=== PATIENT | female | born 1950 | race Caucasian/White ===

== ENCOUNTER 2016-06-01 13:24 | Outpatient (RCR) | payer MEDICARE, MEDICAID, OTHER ==
[2016-03-27 11:16] LABS: MEAN CORPUSCULAR HEMOGLOBIN 32 PG (25-34); MEAN CORPUSCULAR HGB CONC 33 G/DL (32-36); MEAN CORPUSCULAR VOLUME 96 FL (80-99); PLATELET COUNT 263 10^3/uL (130-400); RED BLOOD COUNT 4.29 10^6/uL (4.35-5.85); RED CELL DISTRIBUTION WIDTH 15.7 % (10.0-14.5); WHITE BLOOD COUNT 26.4 10^3/uL (4.3-11.0)
[2016-03-27 11:53] LABS: ALANINE AMINOTRANSFERASE 15 U/L (0-55); ALBUMIN 3.6 G/DL (3.2-4.5); ANION GAP 4 MMOL/L (5-14); ASPARTATE AMINO TRANSFERASE 13 U/L (5-34); BILIRUBIN,TOTAL 0.5 MG/DL (0.1-1.0); BLOOD UREA NITROGEN 11 MG/DL (7-18); BUN/CREATININE RATIO 15; CALCIUM 9.1 MG/DL (8.5-10.1); CARBON DIOXIDE 27 MMOL/L (21-32); CHLORIDE 108 MMOL/L (98-107); CREATININE SERUM 0.75 MG/DL (0.60-1.30); GFR ESTIMATED > 60; GLUCOSE 89 MG/DL (70-105); POTASSIUM 4.4 MMOL/L (3.6-5.0); SODIUM 139 MMOL/L (135-145); TOTAL PROTEIN 5.9 G/DL (6.4-8.2)
[2016-03-28 05:54] LABS: IMMUNOGLOBULIN IGA 66 mg/dL (71-263); IMMUNOGLOBULIN IGG 732 mg/dL (672-1680)
[2016-03-28 15:56] LABS: IMMUNOGLOBULIN IGM 74 mg/dL (47-209)
[2016-04-24 11:06] LABS: MEAN CORPUSCULAR HEMOGLOBIN 33 PG (25-34); MEAN CORPUSCULAR HGB CONC 34 G/DL (32-36); MEAN CORPUSCULAR VOLUME 97 FL (80-99); MEAN PLATELET VOLUME 9.5 FL (7.4-10.4); PLATELET COUNT 270 10^3/uL (130-400); RED BLOOD COUNT 4.56 10^6/uL (4.35-5.85); RED CELL DISTRIBUTION WIDTH 15.9 % (10.0-14.5); WHITE BLOOD COUNT 27.7 10^3/uL (4.3-11.0)
[2016-04-24 11:26] LABS: ALANINE AMINOTRANSFERASE 17 U/L (0-55); ALBUMIN 3.8 G/DL (3.2-4.5); ANION GAP 9 MMOL/L (5-14); ASPARTATE AMINO TRANSFERASE 21 U/L (5-34); BILIRUBIN,TOTAL 0.6 MG/DL (0.1-1.0); BLOOD UREA NITROGEN 10 MG/DL (7-18); BUN/CREATININE RATIO 13; CALCIUM 9.5 MG/DL (8.5-10.1); CARBON DIOXIDE 24 MMOL/L (21-32); CHLORIDE 105 MMOL/L (98-107); CREATININE SERUM 0.75 MG/DL (0.60-1.30); GFR ESTIMATED > 60; GLUCOSE 100 MG/DL (70-105); POTASSIUM 4.2 MMOL/L (3.6-5.0); SODIUM 138 MMOL/L (135-145); TOTAL PROTEIN 6.5 G/DL (6.4-8.2)
[2016-05-29 11:01] LABS: MEAN CORPUSCULAR HEMOGLOBIN 32 PG (25-34); MEAN CORPUSCULAR HGB CONC 33 G/DL (32-36); MEAN CORPUSCULAR VOLUME 97 FL (80-99); MEAN PLATELET VOLUME 9.3 FL (7.4-10.4); PLATELET COUNT 259 10^3/uL (130-400); RED BLOOD COUNT 4.53 10^6/uL (4.35-5.85); RED CELL DISTRIBUTION WIDTH 15.3 % (10.0-14.5); WHITE BLOOD COUNT 28.9 10^3/uL (4.3-11.0)
[2016-05-29 11:35] LABS: ALANINE AMINOTRANSFERASE 14 U/L (0-55); ALBUMIN 3.9 G/DL (3.2-4.5); ANION GAP 8 MMOL/L (5-14); ASPARTATE AMINO TRANSFERASE 19 U/L (5-34); BILIRUBIN,TOTAL 0.5 MG/DL (0.1-1.0); BLOOD UREA NITROGEN 9 MG/DL (7-18); BUN/CREATININE RATIO 12; CALCIUM 9.2 MG/DL (8.5-10.1); CARBON DIOXIDE 23 MMOL/L (21-32); CHLORIDE 107 MMOL/L (98-107); CREATININE SERUM 0.75 MG/DL (0.60-1.30); GFR ESTIMATED > 60; GLUCOSE 116 MG/DL (70-105); POTASSIUM 3.9 MMOL/L (3.6-5.0); SODIUM 138 MMOL/L (135-145); TOTAL PROTEIN 6.4 G/DL (6.4-8.2)
[~2016-06-01 13:24] MED LIST: ACETAMINOPHEN 500 MG TAB (TYLENOL) CANCER CTR PO PRN; ACYC800T7 PO; ALBU8.5H2 IH; ALBU8.5HRX IH; ALCA3DRO OU; AMLO5TAB2 PO; ANTIDEPRESSENT; ASCO-277 PO; ASCO100083 PO; AZIT500T5 PO; BUDE10.2 IH; CAL PO; CALC-758 PO; CALC-80 PO; CARB10DR OU; CEFD300C3 PO; CEPH-507 PO; CEPH500C PO; CLCX200C PO; CPR500T PO; CREONC PO; CYAN10007; CYCL10TA45 PO; CYCL10TA9 PO; DICY20TA10 PO; DIPH25TA82 PO; DOCU-161 PO; DOXY100C2 PO; DULO60CA6 PO; ERYT3.5O8 OD; FLC1T PO; FLUC100T6 PO; FOLI0.4T2; GNT.3OO351 OD; HYDR-3714 PO; IBUP1TAB PO; IPRA3AMP IH; IPRA3AMP INH; IVIG 20 GM (PRIVIGEN) CANCER C 200 ML IV SCH; LORA0.5T PO; LOVA20TA2; Levalbuterol Hcl INH; MAG PO; METH25VI24 SQ; METH25VI57 IJ; METH4TAB PO; METHATREXATE; MTX2.5T; MUPI15CR TP; NAPR1TAB21 PO; NCT21TD TD; OMEP20CA12 PO; OMG1KC; ONDA8TAB13 PO; ONDAN4ODT PO; OXYC-12 PO; OXYM30SP73 NSEACH; PRD20T PO; PRM25T PO; PRM50SU PR; REFRESH LIQUIGEL OU; TRAM50TA2 PO; TRM50T; TRM50T PO; VITD PO; ZICAM PO; ZINC PO; [UNRECOGNIZED DRUG - OTHER] INH; [UNRECOGNIZED DRUG - OTHER] TP; diphenhydrAMINE 25 MG TAB (BENADRYL) CANCER CENTER PO SCH
== END 2016-06-25 | disposition home or self-care (01) ==
LOC: ONC 13:24
PROVIDERS: ATTEND Internal Medicine Hematology & Oncology
DX: C91.10 Chronic lymphocytic leukemia of B-cell type not having achieved remission (principal); J44.9 Chronic obstructive pulmonary disease, unspecified; F17.210 Nicotine dependence, cigarettes, uncomplicated; E66.09 Other obesity due to excess calories; M06.9 Rheumatoid arthritis, unspecified; Z87.01 Personal history of pneumonia (recurrent)
CPT/HCPCS: 36415; 80053; 82232; 82784; 85025; 86430; 96365; 96366; 99213

== ENCOUNTER 2016-07-23 13:28 | Emergency (ER) | payer MEDICARE, MEDICAID ==
[~2016-07-23] VITALS: Ht 154.9 cm; Wt 72.6 kg
[~2016-07-23 13:28] MED LIST changes: -ACETAMINOPHEN 500 MG TAB (TYLENOL) CANCER CTR PO PRN; -IVIG 20 GM (PRIVIGEN) CANCER C 200 ML IV SCH; -diphenhydrAMINE 25 MG TAB (BENADRYL) CANCER CENTER PO SCH
[2016-07-23] MEDS ORDERED: RT-ALBUTEROL/IPRATROPIUM 3 ML (DUONEB) VIAL INH ONE (13:45)
[2016-07-23] MEDS ORDERED: ONDANSETRON 4 MG (ZOFRAN) ORAL DISSOLVE TAB PO ONE (14:15)
[2016-07-23] MEDS ORDERED: OSLT75C PO (14:17)
--- NOTE | 2016-07-23 14:17 | ED Respiratory ---
General Chief Complaint: Cough/Cold/Flu Symptoms Stated Complaint: POSS FLU Nursing Triage Note: c/o cough/congestion with N/V. Onset yesterday Source: patient Exam Limitations: no limitations History of Present Illness Time seen by provider: 14:15 Initial Comments To ER with a cough nausea and vomiting that began yesterday. No fever. States that she vomited once last night and it seemed that it may have blood in it. She has not had any recurrence of this. She does take immunoglobulin from Dr. Brand for CLL Timing/Duration: yesterday Severity: moderate Associated Symptoms: cough Allergies and Home Medications Allergies Coded Allergies: tobramycin (Verified Allergy, Mild, RASH, 05/30/14) Developed eye irritation and itching after using tobramycin eyedrops codeine (Unverified Adverse Reaction, Mild, NAUSEA, 10/12/11) Uncoded Allergies: "buddha belly" (Adverse Reaction, Unknown, states he abdomen gets big and distended from steroids, 07/23/16) Home Medications Omeprazole 20 Mg Capsule.dr 20 MG PO BID (Reported) Ondansetron 8 Mg Tab.rapdis #10 8 MG PO Q6H PRN PRN NAUSEA/VOMITING Prescribed by: LOPEZ WESTON on 07/23/16 1514 Oseltamivir Phosphate 75 Mg Cap #10 75 MG PO BID Prescribed by: LOPEZ WESTON on 07/23/16 1417 Constitutional: see HPI EENTM: see HPI Respiratory: see HPI cough Cardiovascular: no symptoms reported Genitourinary: no symptoms reported Musculoskeletal: no symptoms reported Skin: no symptoms reported Psychiatric/Neurological: No Symptoms Reported Hematologic/Lymphatic: No Symptoms Reported Immunological/Allergic: no symptoms reported Past Ggqqwel-Xchuaa-Lojmyb Hx Patient Social History Type Used: Cigarettes Former Smoker/When Quit: Sep 01, 2015 Recent Foreign Travel: No Contact w/Someone Who Travel: No Recent Infectious Disease Expo: No Immunizations Up To Date Tetanus Booster (TDap): Less than 5yrs PED Vaccines UTD: No Date of Pneumonia Vaccine: May 11, 2010 Date of Influenza Vaccine: Mar 11, 2014 Seasonal Allergies Seasonal Allergies: No Surgeries HX Surgeries: Yes (CARPAL TUNNEL, ECTOPIC /SALPINGECTOMY, EXPLORATORY) Surgeries: Cardiac, Gallbladder, Orthopedic, Tubal Ligation Respiratory Hx Respiratory Disorders: Yes (COPD, SLEEP APNEA-CPAP) Respiratory Disorders: Pneumonia, Sleep Apnea, COPD Cardiovascular Hx Cardiac Disorders: Yes (MURMUR) Cardiac Disorders: Coronary Artery Disease Neurological Hx Neurological Disorders: Yes (ESSENTIAL TREMORS, POSSIBLE NEUROPATHY IN LEGS) Neurological Disorders: Neuropathy Reproductive System Hx Reproductive Disorders: No Sexually Transmitted Disease: No HIV/AIDS: No Female Reproductive Disorders: Denies [employer]WARE ENG[employer] History: Menopausal Genitourinary Hx Genitourinary Disorders: No Gastrointestinal Hx Gastrointestinal Disorders: Yes (SPASTIC COLON, CELIAC DISEASE) Gastrointestinal Disorders: Gastroesophageal Reflux, Chronic Constipation, Irritable Bowel Musculoskeletal Hx Musculoskeletal Disorders: Yes (OSTEOARTHRITIS) Musculoskeletal Disorders: Arthritis, Fibromyalgia, Rheumatoid Arthritis, Fractures Endocrine Hx Endocrine Disorders: No HEENT HX ENT Disorders: No Loss of Vision: Denies Hearing Impairment: Denies Cancer Hx Cancer: No Psychosocial Hx Psychiatric Problems: Yes Behavioral Health Disorders: Anxiety, Depression Integumentary HX Skin/Integumentary Disorder: No Skin/Integumentary Disorders: Recent Skin Changes Blood Transfusions Hx Blood Disorders: No Adverse Reaction to a Blood Tr: No Family Medical History Significant Family History: Cancer Family Medial History: Alcoholism 19 FATHER G8 SISTER Arthritis G8 SISTER Cataracts G8 SISTER Fibrocystic disease of breast G8 SISTER Headache disorder DAUGHTER Hypercholesterolemia SON Hypertension G8 SISTER Kidney disease G8 SISTER Neoplasm G8 SISTER Psychosocial problem DAUGHTER Respiratory disorder G8 SISTER Thyroid disease DAUGHTER No Family History of: AIDS Abdominal aortic aneurysm Oscar's disease Alzheimer's disease Aphasia Asthma Cancer of mouth Cardiovascular disease Colon cancer Completed stroke Congenital disease Congenital heart disease Coronary thrombosis Cystic fibrosis Deafness or hearing loss Dementia Diabetes mellitus Drug abuse Dysphasia Gastroenteritis Glaucoma Infertility Myocardial infarction Not obtainable due to adoption Osteoporosis Parkinson's disease Prostate cancer Seizure disorder Severe allergy Tuberculosis Visual disorder Physical Exam Vital Signs Vital Sign - Last 12Hours 07/23/16 13:30 Temp 97.5 Pulse 90 Resp 22 B/P 161/84 Pulse Ox 92 O2 Delivery Room Air Capillary Refill : Less Than 3 Seconds General Appearance: WD/WN no apparent distress Eyes: Bilateral Eye EOMI, Bilateral Eye Normal Inspection, Bilateral Eye PERRL HEENT: PERRL/EOMI normal ENT inspection Neck: non-tender full range of motion Respiratory: normal breath sounds no respiratory distress no accessory muscle use wheezing (oxygen saturation 95 percent, normal respiratory rate) Cardiovascular: regular rate, rhythm no murmur Gastrointestinal: normal bowel sounds non tender soft Extremities: normal range of motion non-tender Neurologic/Psychiatric: alert normal mood/affect oriented x 3 Skin: normal color warm/dry Laceration Repair : Suture Size: 4-0 Progress/Results/Core Measures Results/Orders Lab Results Laboratory Tests Test 07/23/16 14:29 Range/Units Basophils # (Auto) 0.0 0.0-0.1 10^3/uL Basophils (%) (Auto) 0 0-10 % Eosinophils # (Auto) 0.1 0.0-0.3 10^3/uL Eosinophils (%) (Auto) 1 0-10 % Hematocrit 43 35-52 % Hemoglobin 14.5 11.5-16.0 G/DL Lymphocytes # (Auto) 6.6 H 1.0-4.0 X 10^3 Lymphocytes (%) (Auto) 50 H 12-44 % Mean Corpuscular Hemoglobin 32 25-34 PG Mean Corpuscular Hemoglobin Concent 33 32-36 G/DL Mean Corpuscular Volume 96 80-99 FL Mean Platelet Volume 9.6 7.4-10.4 FL Monocytes # (Auto) 1.3 H 0.0-1.0 X 10^3 Monocytes (%) (Auto) 10 0-12 % Neutrophils # (Auto) 5.1 1.8-7.8 X 10^3 Neutrophils (%) (Auto) 39 L 42-75 % Platelet Count 181 130-400 10^3/uL Red Blood Count 4.54 4.35-5.85 10^6/uL Red Cell Distribution Width 15.0 H 10.0-14.5 % White Blood Count 13.2 H 4.3-11.0 10^3/uL Micro Results Microbiology 07/23/16 Influenza Types A,B Antigen (CA) - Final, Complete My Orders Orders-LOPEZ WESTON MANAGER ACQUISITION Influenza A And B Antigens (07/23/16 13:44) Albuterol/Ipra Inhalation Soln (Duoneb I (07/23/16 13:45) Svn Sm Volume Nebulizer Rt-Rfs (07/23/16 13:45) Chest Pa/Lat (2 View) (07/23/16 14:11) Ondansetron Oral Dissolve Tab (Zofran (07/23/16 14:15) Cbc With Automated Diff (07/23/16 14:15) Medications Given in ED Current Medications Medications Dose Ordered Sig/Enzo Route Start Time Stop Time Status Last Admin Dose Admin Albuterol/ Ipratropium 3 ml ONCE ONCE INH 07/23/16 13:45 07/23/16 13:46 DC 07/23/16 13:55 3 ML Ondansetron HCl 4 mg ONCE ONCE PO 07/23/16 14:15 07/23/16 14:16 DC 07/23/16 14:38 4 MG Vital Signs/I&O Vital Sign - Last 12Hours 07/23/16 07/23/16 13:30 13:55 Temp 97.5 Pulse 90 Resp 22 B/P 161/84 Pulse Ox 92 92 O2 Delivery Room Air Blood Pressure Mean: 109 Departure Impression Impression: Primary Impression: Influenza A Disposition: 01 HOME, SELF-CARE Condition: Stable Departure-Patient Inst. Decision time for Depature: 14:17 Referrals: ELIER CHACON DO (PCP/Family) Primary Care Physician Patient Instructions: NO INSTRUCTIONS GIVEN Add. Discharge Instructions: 1. Medication as directed 2. Follow-up with your doctor tomorrow 3. Return to ER for any worsening All discharge instructions reviewed with patient and/or family. Voiced understanding. Scripts Ondansetron (Zofran Odt)8 Mg Tab.rapdis8 Mg PO Q6H PRN NAUSEA/VOMITING #10 TAB Prov:LOPEZ WESTON MANAGER ACQUISITION 07/23/16 Oseltamivir Phosphate (Tamiflu)75 Mg Cap75 Mg PO BID #10 CAP Prov:LOPEZ WESTON MANAGER ACQUISITION 07/23/16 LOPEZ WESTON MANAGER ACQUISITION Jul 23, 2016 14:17
[2016-07-23 14:41] LABS: BASOPHILS % (AUTO) 0 % (0-10); EOSINOPHILS # (AUTO) 0.1 10^3/uL (0.0-0.3); EOSINOPHILS % (AUTO) 1 % (0-10); LYMPHOCYTES # (AUTO) 6.6 X 10^3 (1.0-4.0); LYMPHOCYTES % (AUTO) 50 % (12-44); MEAN CORPUSCULAR HEMOGLOBIN 32 PG (25-34); MEAN CORPUSCULAR HGB CONC 33 G/DL (32-36); MEAN CORPUSCULAR VOLUME 96 FL (80-99); MEAN PLATELET VOLUME 9.6 FL (7.4-10.4); MONOCYTES # (AUTO) 1.3 X 10^3 (0.0-1.0); MONOCYTES % (AUTO) 10 % (0-12); NEUTROPHILS # (AUTO) 5.1 X 10^3 (1.8-7.8); NEUTROPHILS % (AUTO) 39 % (42-75); PLATELET COUNT 181 10^3/uL (130-400); RED BLOOD COUNT 4.54 10^6/uL (4.35-5.85); WHITE BLOOD COUNT 13.2 10^3/uL (4.3-11.0)
--- NOTE | 2016-07-23 15:09 | Diagnostic Imaging Report ---
INDICATION: Cough and congestion with nausea and vomiting. EXAMINATION: Two-view chest, 07/23/2016. COMPARISON: 09/17/2015 and 09/10/2015. FINDINGS: Heart is prominent. The pulmonary vasculature is minimally congested. There are rounded densities in both lungs, stable from previous imaging, perhaps calcified granulomata. There are no infiltrates or effusions. No pneumothorax. IMPRESSION: Chronic changes, as described. No acute cardiopulmonary process. Dictated by: Dictated on workstation # [id number]
[2016-07-23 15:10] VITALS: BP 152/80
[2016-07-23] MEDS ORDERED: ONDA8TAB9 PO (15:14)
== END 2016-07-23 15:10 | disposition home or self-care (01) ==
LOC: EDUNIT# 13:28 → ER 13:30
DX: J09.X3 Influenza due to identified novel influenza A virus with gastrointestinal manifestations (principal); J44.9 Chronic obstructive pulmonary disease, unspecified
CPT/HCPCS: 36415; 71020; 85025; 87804; 94640; 99285

== ENCOUNTER → 2016-08-01 | Outpatient (CLI) | payer MEDICARE, MEDICAID ==
[~2016-08-01] MED LIST changes: +ONDA8TAB9 PO; +OSLT75C PO
--- NOTE | 2016-08-01 10:41 | Diagnostic Imaging Report ---
Clinical indication: Pneumonia. Patient has cough and shortness of breath for a while. Exam: Chest x-ray PA and lateral views. Comparisons: Chest x-ray dated 07/23/2016. CT scan of the chest, abdomen, and pelvis without IV contrast dated 09/14/2015. Findings: Lungs/pleura: Calcified granuloma are seen within both lungs. There is minimal discoid atelectasis in the periphery of the left lung base region. Otherwise, lungs are clear. There is no pneumothorax. There is no pleural effusion. Mediastinum: Unremarkable. Pulmonary vasculature: Unremarkable. Heart: Unremarkable. Bones/extrathoracic soft tissue: There are hypertrophic degenerative osteophytes scattered throughout the thoracic spine. Impression: 1: Interval development of minimal discoid atelectasis in the periphery of the left lung base. There is no radiographic evidence of acute cardiopulmonary process. 2: Calcified granulomatous disease in the lungs. Results of this report were discussed with Dr. Janice Resendiz via the telephone on 08/01/2016 at 1040 hrs. Dictated by: Dictated on workstation # [id number]
== END ==
LOC: RAD 10:15
PROVIDERS: ATTEND Family Medicine
DX: J11.1 Influenza due to unidentified influenza virus with other respiratory manifestations (principal); R05 Cough; R06.00 Dyspnea, unspecified
CPT/HCPCS: 71020

== ENCOUNTER → 2016-09-11 | Outpatient (CLI) | payer MEDICAID, MEDICARE ==
--- NOTE | 2016-09-11 13:50 | Diagnostic Imaging Report ---
PROCEDURE: MRI lumbar spine. TECHNIQUE: Multiplanar, multisequence MRI of the lumbar spine was performed without contrast. INDICATION: Back pain. FINDINGS: The previous MRI of the lumbar spine exam performed on 03/11/2009 noted mild lower lumbar spondylosis and facet arthropathy. There was no sign of a focal disc protrusion or central or neural foraminal stenosis on the prior exam. 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 Specifically, there is mild spinal stenosis at the L2-3 level. There is a disc bulge essentially at this level, which compresses the ventral aspect of the thecal sac and narrows the AP diameter to 9.1 mm. There is also at least moderate narrowing of the neural foramen on the right at this level. There is no significant neural foraminal narrowing on the left at L2-3. There is also mild trefoil stenosis at L3-4. The AP diameter of the thecal sac is narrowed to 8.5 mm. There is also moderate narrowing of the neural foramen bilaterally at this level. At the L4-5 level, there is also trefoil stenosis with narrowing of the AP diameter of the thecal sac to 8.4 mm. There is mild narrowing of the neural foramen bilaterally at this level as well. At the L5-S1 level, the AP diameter of the thecal sac measures 8.3 mm. There does not appear to be any significant narrowing of the neural foramen at this level. There is no evidence for spinal stenosis or nerve root encroachment the L1-2 level. There is no abnormal signal arising from the cord or the vertebral bodies to indicate an acute abnormality. There is no sign of a paraspinal mass. IMPRESSION: 1. In the interval since the previous exam, the degenerative disc and bony disease involving the lumbar spine has progressed. Specifically, there is now trefoil stenosis at L2-3, L3-4, and L4-5. There is also at least moderate narrowing of the neural foramen on the right at L2-3 and bilaterally at L3-4. 2. There is no acute bony abnormality noted. Dictated by: Dictated on workstation # [id number]
== END ==
LOC: RAD 11:38
PROVIDERS: ATTEND Family Medicine
DX: M43.16 Spondylolisthesis, lumbar region (principal); M47.16 Other spondylosis with myelopathy, lumbar region
CPT/HCPCS: 72148

== ENCOUNTER 2016-09-21 09:27 | Outpatient (RCR) | payer MEDICARE, MEDICAID, OTHER ==
--- OUTSIDE RECORDS SUMMARY | 2016-07-10 15:33 | XMS REPORT | Continuity of Care Document ---
Author Author Interface Organization Interface Address Unknown Phone Unavailable Problems Problem Status Onset Date Classification Date Reported Comments Source Medications Medication Details Route Status Patient Instructions Ordering Provider Order Date Source Allergies, Adverse Reactions, Alerts Substance Category Reaction Severity Reaction type Status Date Reported Comments Source Immunizations Immunization Date Given Site Status Last Updated Comments Source Results Order Name Results Value Reference Range Date Interpretation Comments Source Vital Signs Vital Sign Value Date Comments Source Encounters Location Location Details Encounter Type Encounter Number Reason For Visit Attending Provider ADM Date DC Date Status Source Procedures Procedure Code Date Perfomer Comments Source
[2016-07-10 15:40] LABS: MEAN CORPUSCULAR HEMOGLOBIN 32 PG (25-34); MEAN CORPUSCULAR HGB CONC 33 G/DL (32-36); MEAN CORPUSCULAR VOLUME 97 FL (80-99); PLATELET COUNT 251 10^3/uL (130-400); RED BLOOD COUNT 4.46 10^6/uL (4.35-5.85)
[2016-07-10 15:46] LABS: WHITE BLOOD COUNT 36.8 10^3/uL (4.3-11.0)
[2016-07-10 16:38] LABS: ALANINE AMINOTRANSFERASE 11 U/L (0-55); ALBUMIN 3.8 G/DL (3.2-4.5); ANION GAP 8 MMOL/L (5-14); ASPARTATE AMINO TRANSFERASE 17 U/L (5-34); BILIRUBIN,TOTAL 0.3 MG/DL (0.1-1.0); BLOOD UREA NITROGEN 10 MG/DL (7-18); BUN/CREATININE RATIO 12; CALCIUM 8.9 MG/DL (8.5-10.1); CARBON DIOXIDE 24 MMOL/L (21-32); CHLORIDE 105 MMOL/L (98-107); CREATININE SERUM 0.82 MG/DL (0.60-1.30); GFR ESTIMATED > 60; GLUCOSE 81 MG/DL (70-105); LACTATE DEHYDROGENASE 237 U/L (125-220); POTASSIUM 4.4 MMOL/L (3.6-5.0); SODIUM 137 MMOL/L (135-145); TOTAL PROTEIN 6.3 G/DL (6.4-8.2)
[2016-07-11 07:07] LABS: IMMUNOGLOBULIN IGA 68 mg/dL (71-263); IMMUNOGLOBULIN IGG 737 mg/dL (672-1680)
[2016-07-11 07:39] LABS: IMMUNOGLOBULIN IGM 73 mg/dL (47-209)
[2016-08-22 09:13] LABS: BASOPHILS # (AUTO) 0.1 10^3/uL (0.0-0.1); BASOPHILS % (AUTO) 0 % (0-10); EOSINOPHILS # (AUTO) 0.3 10^3/uL (0.0-0.3); EOSINOPHILS % (AUTO) 1 % (0-10); LYMPHOCYTES # (AUTO) 20.4 X 10^3 (1.0-4.0); LYMPHOCYTES % (AUTO) 74 % (12-44); MEAN CORPUSCULAR HEMOGLOBIN 32 PG (25-34); MEAN CORPUSCULAR HGB CONC 33 G/DL (32-36); MEAN CORPUSCULAR VOLUME 97 FL (80-99); MONOCYTES % (AUTO) 7 % (0-12); NEUTROPHILS % (AUTO) 18 % (42-75); PLATELET COUNT 216 10^3/uL (130-400); RED BLOOD COUNT 4.02 10^6/uL (4.35-5.85); RED CELL DISTRIBUTION WIDTH 15.3 % (10.0-14.5); WHITE BLOOD COUNT 27.7 10^3/uL (4.3-11.0)
[2016-08-22 10:00] LABS: ALANINE AMINOTRANSFERASE 13 U/L (0-55); ALBUMIN 3.4 G/DL (3.2-4.5); ANION GAP 6 MMOL/L (5-14); ASPARTATE AMINO TRANSFERASE 14 U/L (5-34); BILIRUBIN,TOTAL 0.6 MG/DL (0.1-1.0); BLOOD UREA NITROGEN 10 MG/DL (7-18); BUN/CREATININE RATIO 13; CALCIUM 8.9 MG/DL (8.5-10.1); CARBON DIOXIDE 25 MMOL/L (21-32); CHLORIDE 108 MMOL/L (98-107); CREATININE SERUM 0.77 MG/DL (0.60-1.30); GFR ESTIMATED > 60; GLUCOSE 83 MG/DL (70-105); LACTATE DEHYDROGENASE 185 U/L (125-220); POTASSIUM 4.5 MMOL/L (3.6-5.0); SODIUM 139 MMOL/L (135-145); TOTAL PROTEIN 5.9 G/DL (6.4-8.2)
[2016-08-23 03:18] LABS: IMMUNOGLOBULIN IGA 59 mg/dL (71-263); IMMUNOGLOBULIN IGG 693 mg/dL (672-1680)
[2016-08-23 07:26] LABS: IMMUNOGLOBULIN IGM 71 mg/dL (47-209)
[2016-09-18 09:50] LABS: MEAN CORPUSCULAR HEMOGLOBIN 33 PG (25-34); MEAN CORPUSCULAR HGB CONC 33 G/DL (32-36); MEAN CORPUSCULAR VOLUME 99 FL (80-99); MEAN PLATELET VOLUME 9.1 FL (7.4-10.4); PLATELET COUNT 214 10^3/uL (130-400); RED BLOOD COUNT 4.02 10^6/uL (4.35-5.85)
[2016-09-18 10:03] LABS: WHITE BLOOD COUNT 30.8 10^3/uL (4.3-11.0)
[2016-09-18 10:33] LABS: ALANINE AMINOTRANSFERASE 17 U/L (0-55); ALBUMIN 3.4 G/DL (3.2-4.5); ANION GAP 6 MMOL/L (5-14); ASPARTATE AMINO TRANSFERASE 21 U/L (5-34); BILIRUBIN,TOTAL 0.5 MG/DL (0.1-1.0); BLOOD UREA NITROGEN 9 MG/DL (7-18); BUN/CREATININE RATIO 12; CALCIUM 8.7 MG/DL (8.5-10.1); CARBON DIOXIDE 25 MMOL/L (21-32); CHLORIDE 108 MMOL/L (98-107); CREATININE SERUM 0.77 MG/DL (0.60-1.30); GFR ESTIMATED > 60; GLUCOSE 94 MG/DL (70-105); POTASSIUM 4.5 MMOL/L (3.6-5.0); SODIUM 139 MMOL/L (135-145); TOTAL PROTEIN 5.9 G/DL (6.4-8.2)
[2016-09-19 05:21] LABS: IMMUNOGLOBULIN IGA 49 mg/dL (71-263); IMMUNOGLOBULIN IGG 854 mg/dL (672-1680)
[2016-09-19 07:36] LABS: IMMUNOGLOBULIN IGM 68 mg/dL (47-209)
[~2016-09-21 09:27] MED LIST changes: +ACETAMINOPHEN 500 MG TAB (TYLENOL) CANCER CTR PO PRN; +IVIG 20 GM (PRIVIGEN) CANCER C 200 ML IV SCH; +diphenhydrAMINE 25 MG TAB (BENADRYL) CANCER CENTER PO SCH
== END 2016-10-08 | disposition home or self-care (01) ==
LOC: ONC 09:27
PROVIDERS: ATTEND Internal Medicine Hematology & Oncology
DX: C91.10 Chronic lymphocytic leukemia of B-cell type not having achieved remission (principal); J44.9 Chronic obstructive pulmonary disease, unspecified; F17.210 Nicotine dependence, cigarettes, uncomplicated; E66.09 Other obesity due to excess calories; M06.9 Rheumatoid arthritis, unspecified; Z87.01 Personal history of pneumonia (recurrent)
CPT/HCPCS: 36415; 80053; 82784; 83615; 85025; 96365; 96366; 96415; 99213

== ENCOUNTER 2016-10-31 13:45 | Outpatient (RCR) | payer MEDICARE, MEDICAID ==
[~2016-10-31 13:45] MED LIST changes: -ACETAMINOPHEN 500 MG TAB (TYLENOL) CANCER CTR PO PRN; -IVIG 20 GM (PRIVIGEN) CANCER C 200 ML IV SCH; -diphenhydrAMINE 25 MG TAB (BENADRYL) CANCER CENTER PO SCH
== END 2016-10-31 14:41 | disposition home or self-care (01) ==
PROVIDERS: ATTEND Family Medicine
DX: R52 Pain, unspecified (principal); M06.9 Rheumatoid arthritis, unspecified

== ENCOUNTER 2016-12-26 09:38 | Outpatient (RCR) | payer MEDICARE, MEDICAID, OTHER ==
[2016-10-16 10:18] LABS: MEAN CORPUSCULAR HEMOGLOBIN 32 PG (25-34); MEAN CORPUSCULAR HGB CONC 33 G/DL (32-36); MEAN CORPUSCULAR VOLUME 99 FL (80-99); MEAN PLATELET VOLUME 9.7 FL (7.4-10.4); PLATELET COUNT 234 10^3/uL (130-400); RED BLOOD COUNT 4.04 10^6/uL (4.35-5.85); RED CELL DISTRIBUTION WIDTH 15.2 % (10.0-14.5)
[2016-10-16 10:26] LABS: WHITE BLOOD COUNT 32.7 10^3/uL (4.3-11.0)
[2016-10-16 10:44] LABS: ALANINE AMINOTRANSFERASE 16 U/L (0-55); ALBUMIN 3.6 G/DL (3.2-4.5); ANION GAP 6 MMOL/L (5-14); ASPARTATE AMINO TRANSFERASE 20 U/L (5-34); BILIRUBIN,TOTAL 0.6 MG/DL (0.1-1.0); BLOOD UREA NITROGEN 11 MG/DL (7-18); BUN/CREATININE RATIO 14; CALCIUM 9.1 MG/DL (8.5-10.1); CARBON DIOXIDE 25 MMOL/L (21-32); CHLORIDE 107 MMOL/L (98-107); CREATININE SERUM 0.77 MG/DL (0.60-1.30); GFR ESTIMATED > 60; GLUCOSE 87 MG/DL (70-105); POTASSIUM 4.6 MMOL/L (3.6-5.0); SODIUM 138 MMOL/L (135-145); TOTAL PROTEIN 6.3 G/DL (6.4-8.2)
[2016-10-17 09:54] LABS: IMMUNOGLOBULIN IGA 52 mg/dL (71-263); IMMUNOGLOBULIN IGG 865 mg/dL (672-1680)
[2016-10-17 16:15] LABS: IMMUNOGLOBULIN IGM 65 mg/dL (47-209)
[2016-11-13 09:11] LABS: MEAN CORPUSCULAR HEMOGLOBIN 34 PG (25-34); MEAN CORPUSCULAR HGB CONC 34 G/DL (32-36); MEAN CORPUSCULAR VOLUME 100 FL (80-99); MEAN PLATELET VOLUME 9.2 FL (7.4-10.4); PLATELET COUNT 255 10^3/uL (130-400); RED BLOOD COUNT 4.09 10^6/uL (4.35-5.85); RED CELL DISTRIBUTION WIDTH 14.9 % (10.0-14.5)
[2016-11-13 09:39] LABS: ALANINE AMINOTRANSFERASE 16 U/L (0-55); ALBUMIN 3.6 G/DL (3.2-4.5); ANION GAP 6 MMOL/L (5-14); ASPARTATE AMINO TRANSFERASE 19 U/L (5-34); BILIRUBIN,TOTAL 0.4 MG/DL (0.1-1.0); BLOOD UREA NITROGEN 8 MG/DL (7-18); BUN/CREATININE RATIO 11; CALCIUM 9.1 MG/DL (8.5-10.1); CARBON DIOXIDE 26 MMOL/L (21-32); CHLORIDE 107 MMOL/L (98-107); CREATININE SERUM 0.76 MG/DL (0.60-1.30); GFR ESTIMATED > 60; GLUCOSE 90 MG/DL (70-105); SODIUM 139 MMOL/L (135-145); TOTAL PROTEIN 6.4 G/DL (6.4-8.2)
[2016-11-13 10:12] LABS: WHITE BLOOD COUNT 36.2 10^3/uL (4.3-11.0)
[2016-12-21 10:01] LABS: MEAN CORPUSCULAR HEMOGLOBIN 32 PG (25-34); MEAN CORPUSCULAR HGB CONC 32 G/DL (32-36); MEAN CORPUSCULAR VOLUME 99 FL (80-99); MEAN PLATELET VOLUME 9.1 FL (7.4-10.4); PLATELET COUNT 242 10^3/uL (130-400); RED CELL DISTRIBUTION WIDTH 14.6 % (10.0-14.5)
[2016-12-21 10:24] LABS: ALANINE AMINOTRANSFERASE 11 U/L (0-55); ALBUMIN 3.7 GM/DL (3.2-4.5); ANION GAP 8 MMOL/L (5-14); ASPARTATE AMINO TRANSFERASE 13 U/L (5-34); BILIRUBIN,TOTAL 0.4 MG/DL (0.1-1.0); BLOOD UREA NITROGEN 12 MG/DL (7-18); BUN/CREATININE RATIO 16; CARBON DIOXIDE 24 MMOL/L (21-32); CHLORIDE 105 MMOL/L (98-107); CREATININE SERUM 0.76 MG/DL (0.60-1.30); GFR ESTIMATED > 60; GLUCOSE 96 MG/DL (70-105); POTASSIUM 4.1 MMOL/L (3.6-5.0); SODIUM 137 MMOL/L (135-145); TOTAL PROTEIN 6.6 GM/DL (6.4-8.2)
[2016-12-21 10:41] LABS: WHITE BLOOD COUNT 34.4 10^3/uL (4.3-11.0)
[~2016-12-26 09:38] MED LIST changes: +ACETAMINOPHEN 500 MG TAB (TYLENOL) CANCER CTR PO PRN; +IVIG 20 GM (PRIVIGEN) CANCER C 200 ML IV SCH; +diphenhydrAMINE 25 MG TAB (BENADRYL) CANCER CENTER PO SCH
== END 2017-01-14 | disposition home or self-care (01) ==
LOC: ONC 09:38
PROVIDERS: ATTEND Internal Medicine Hematology & Oncology
DX: C91.10 Chronic lymphocytic leukemia of B-cell type not having achieved remission (principal); J44.9 Chronic obstructive pulmonary disease, unspecified; F17.210 Nicotine dependence, cigarettes, uncomplicated; E66.09 Other obesity due to excess calories; M06.9 Rheumatoid arthritis, unspecified; Z87.01 Personal history of pneumonia (recurrent)
CPT/HCPCS: 36415; 80053; 82232; 82784; 85025; 96365; 96366; 99213

== ENCOUNTER 2017-01-23 09:37 | Outpatient (RCR) | payer MEDICARE, MEDICAID, OTHER ==
[2017-01-16 08:59] LABS: MEAN CORPUSCULAR HEMOGLOBIN 32 PG (25-34); MEAN CORPUSCULAR HGB CONC 33 G/DL (32-36); MEAN CORPUSCULAR VOLUME 99 FL (80-99); MEAN PLATELET VOLUME 9.7 FL (7.4-10.4); PLATELET COUNT 259 10^3/uL (130-400); RED BLOOD COUNT 4.33 10^6/uL (4.35-5.85); RED CELL DISTRIBUTION WIDTH 14.7 % (10.0-14.5)
[2017-01-16 09:01] LABS: WHITE BLOOD COUNT 41.8 10^3/uL (4.3-11.0)
[2017-01-16 09:07] LABS: ALANINE AMINOTRANSFERASE 11 U/L (0-55); ALBUMIN 3.7 GM/DL (3.2-4.5); ANION GAP 10 MMOL/L (5-14); ASPARTATE AMINO TRANSFERASE 15 U/L (5-34); BILIRUBIN,TOTAL 0.6 MG/DL (0.1-1.0); BLOOD UREA NITROGEN 10 MG/DL (7-18); BUN/CREATININE RATIO 13; CALCIUM 9.4 MG/DL (8.5-10.1); CARBON DIOXIDE 24 MMOL/L (21-32); CHLORIDE 104 MMOL/L (98-107); CREATININE SERUM 0.75 MG/DL (0.60-1.30); GFR ESTIMATED > 60; GLUCOSE 92 MG/DL (70-105); SODIUM 138 MMOL/L (135-145); TOTAL PROTEIN 6.6 GM/DL (6.4-8.2)
[2017-01-17 05:46] LABS: IMMUNOGLOBULIN IGA 227 mg/dL (71-263); IMMUNOGLOBULIN IGG 980 mg/dL (672-1680)
[2017-01-17 07:33] LABS: IMMUNOGLOBULIN IGM 61 mg/dL (47-209)
== END 2017-03-10 | disposition home or self-care (01) ==
LOC: ONC 09:37
PROVIDERS: ATTEND Internal Medicine Hematology & Oncology
DX: C91.10 Chronic lymphocytic leukemia of B-cell type not having achieved remission (principal); J44.9 Chronic obstructive pulmonary disease, unspecified; F17.210 Nicotine dependence, cigarettes, uncomplicated; E66.09 Other obesity due to excess calories; M06.9 Rheumatoid arthritis, unspecified; Z87.01 Personal history of pneumonia (recurrent)
CPT/HCPCS: 36415; 80053; 82784; 84443; 85025; 96365; 96366